=== PATIENT | male | born 1990 | race Caucasian/White ===

== ENCOUNTER 2018-08-10 16:39 | Emergency (ER) | payer SELFPAY ==
[~2018-08-10] VITALS: Ht 185.4 cm; Wt 81.6 kg
[2018-08-10 17:00] VITALS: BP 116/71
== END 2018-08-10 20:33 | disposition home or self-care (01) ==
LOC: ER 16:39
DX: K21.0 Gastro-esophageal reflux disease with esophagitis (principal)
CPT/HCPCS: 36415; 76536; 84439; 84443